=== PATIENT | female | born 1945 | race Caucasian/White ===

== ENCOUNTER → 2023-05-22 12:50 | Outpatient (REF) | payer MEDICARE, OTHER, SELFPAY | LOC: RAD 12:50 | PROVIDERS: ATTENDING PHYSICIAN Family Medicine | DX: Z87.891 Personal history of nicotine dependence (principal) | CPT/HCPCS: 71271 ==

== ENCOUNTER → 2023-07-01 10:26 | Outpatient (REF) | payer MEDICARE, OTHER, SELFPAY | LOC: RAD 10:26 | PROVIDERS: ATTENDING PHYSICIAN Family Medicine | DX: R10.30 Lower abdominal pain, unspecified (principal); M79.604 Pain in right leg | CPT/HCPCS: 73522 ==

== ENCOUNTER → 2024-07-27 08:57 | Outpatient (REF) | payer MEDICARE, OTHER, SELFPAY | LOC: HWRAD 08:57 | PROVIDERS: ATTENDING PHYSICIAN Family Medicine | DX: Z87.891 Personal history of nicotine dependence (principal) | CPT/HCPCS: 71271 ==

== ENCOUNTER 2025-01-04 06:12 | Day surgery (SDC) | payer MEDICARE, OTHER, SELFPAY | END 2025-01-04 11:26 | disposition home or self-care (01) | LOC: GI 06:12 | PROVIDERS: ATTENDING PHYSICIAN Internal Medicine | DX: Z12.11 Encounter for screening for malignant neoplasm of colon (principal); Z86.0100 Personal history of colon polyps, unspecified; Q43.8 Other specified congenital malformations of intestine; K62.1 Rectal polyp | CPT/HCPCS: 45380; 88305 ==